=== PATIENT | female | born 1945 | race Caucasian/White ===

== ENCOUNTER 2017-06-12 19:11 | Emergency (ER) | payer MEDICARE, OTHER ==
[~2017-06-12] VITALS: Ht 170.2 cm; Wt 60.3 kg
[~2017-06-12 19:11] MED LIST: AZIT-1 PO; BENZ200C15 PO; CA C1TAB85 PO; CALC-852 PO; CALC1TAB32 PO; CITA-139 PO; CLOB15OI TP; EPIN0.3P15 IM; GLUC1TAB35 PO; LEVO50TA86 PO; LEVO75TA73 PO; LOVAZA1PT PO; MELA1TAB15 PO; MONT10TA4 PO; MULT1TAB54 PO; OMEG500C5 PO; PRIM50TA PO; SODI3.5O14 OP
--- NOTE | 2017-06-12 19:31 | ER Report ---
History and Physical Time Seen By MD: 19:30 Hx. of Stated Complaint: PT HAS HAD 7 BOUTS OF DIARRHEA TODAY AND 3 BOUT OF VOMITING. STARTED THIS MORNING AROUND 10 AM. HPI/ROS CHIEF COMPLAINT: Nausea, vomiting, diarrhea HISTORY OF PRESENT ILLNESS: 71-year-old female patient presents to emergency room with complaint of nausea, vomiting diarrhea. Patient states this started approximately 10:00 this morning. Patient states that she has had 7 bouts of diarrhea and 3 bouts of vomiting. She denies having any fevers, chills. Patient states that her started getting sick in the middle the night. She states that he's had several bouts of diarrhea. They did call and speak with the on-call physician for Dr. Ward. They recommended Gatorade for her but due to her vomiting the recommended the patient come in for further evaluation. Patient states she's not having any pain. She states she has not taken any medication for this. REVIEW OF SYSTEMS: Respiratory: No cough, no dyspnea. Cardiovascular: No chest pain, no palpitations. Gastrointestinal: As noted above Musculoskeletal: No back pain. Allergies: Coded Allergies: aspirin (Verified Allergy, Severe, anaphylaxis, 06/12/17) Home Meds Active Scripts Ondansetron (ZOFRAN ODT) 4 Mg Tab.rapdis, 4 MG PO Q6H Y for NAUSEA/VOMITING, # 20 TAB.VALERIE Prov:ASHUTOSH CHILDRESS 06/12/17 Levothyroxine Sodium (LEVOTHYROXINE SODIUM) 75 Mcg Tablet, 1 TAB PO QDAY, #90 TAB 3 Refills 1 tab po q d X 6 days per week, skip one day. Prov:ANUJA BISWAS MD 01/02/17 Epinephrine (EPIPEN 2-ALFONSO) 0.3 Mg/0.3 Ml Pen.injctr, 1 DOSE-PACK IM ONCE Y for ALLERGY SYMPTOMS, #1 PACK 1 Refill Prov:ANDREA SKAGGS APRN [employer] 04/07/14 Reported Medications Primidone (PRIMIDONE) 50 Mg Tab, 1 TAB PO BID, TAB 06/24/16 Calcium Carbonate/Vitamin D3 (CALCIUM + VITAMIN D TABLET) 1 Each Tablet, 1 TAB PO BID 06/20/15 [place]-3 Fatty Acids (FISH OIL) 500 Mg Capsule., 1 CAP PO QDAY 05/18/14 Glucosamine/Msm/Chondroitin A (GLUCOSAMINE CHONDROIT MSM TAB) 1 Each Tablet, 1 TAB PO BID 01/09/14 Sodium Chloride (SABRINA-128) Unknown Strength Oint...g., 1 DROP OP QPM 01/09/14 Clobetasol Propionate (TEMOVATE) Unknown Strength Oint...g., 1 TIFFANI TP BID 01/09/14 Multivitamin (MULTI-VITAMIN DAILY) 1 Each Tablet, 1 TAB PO DAILY 01/09/14 Discontinued Scripts Citalopram Hydrobromide (CITALOPRAM HBR) 20 Mg Tablet, 1 TAB PO QDAY, #90 TAB 1 Refill Prov:ANUJA BISWAS MD 09/11/16 Past Medical/Surgical History Patient has a past medical history of arthritis, fracture of her clavicle, hypothyroidism, depression. Patient has a surgical history of L5-S1 surgery for bulging disc, tonsillectomy. Reviewed Nurses Notes: Yes Smoking Status: Never Smoker Exposure to Second Hand Smoke?: No Constitutional Vital Sign - Last 24 Hours 06/12/17 06/12/17 06/12/17 06/12/17 19:24 19:27 19:41 20:11 Temp 98.3 Pulse 82 80 82 Resp 12 B/P (MAP) 125/70 (88) 125/70 Pulse Ox 91 86 91 O2 Delivery Room Air 06/12/17 06/12/17 20:41 21:07 Pulse 75 B/P (MAP) 112/68 (83) Pulse Ox 97 Intake and Output 06/12/17 06/12/17 06/13/17 15:01 23:01 07:01 Intake Total 1000 ml Balance 1000 ml Physical Exam General Appearance: The patient is alert, has no immediate need for airway protection and no current signs of toxicity. ENT: Mucous membranes are moist. Respiratory: Chest is non tender, lungs are clear to auscultation. Cardiac: regular rate and rhythm Gastrointestinal: Abdomen is soft and non tender, no masses, bowel sounds are hyperactive. Musculoskeletal: Neck: Neck is supple and non tender. Extremities have full range of motion and are non tender. Skin: No rashes or lesions. DIFFERENTIAL DIAGNOSIS: After history and physical exam differential diagnosis was considered for nausea and vomiting including but not limited to gastroenteritis, gastritis, appendicitis, and medication side effect. Medical Decision Making Data Points Result Diagram: 06/12/17194906/12/171949 Laboratory Hematology Test 06/12/17 19:17 06/12/17 19:50 Urine Color Yellow Urine Clarity Slightly-cloudy Urine pH 5.0 pH (4.8-9.5) Urine Specific [place] 1.026 Urine Protein Negative mg/dL (NEGATIVE) Urine Glucose (UA) Negative mg/dL (NEGATIVE) Urine Ketones 20 mg/dL (NEGATIVE) Urine Blood Negative (NEGATIVE) Urine Nitrite Negative (NEGATIVE) Urine Bilirubin Negative (NEGATIVE) Urine Urobilinogen Negative mg/dL (0.2-1.9) Urine Leukocyte Esterase Trace (NEGATIVE) Urine RBC 1 /HPF (0-2/HPF) Urine WBC 4 /HPF (0-5/HPF) Urine Squamous Epithelial Cells None /LPF (</=FEW) Urine Bacteria Negative /HPF (NONE-FEW) Urine Mucus Few /HPF (NONE-FEW) Red Blood Count 4.78 M/uL (4.17-5.56) Mean Corpuscular Volume 93.8 fL (80.0-96.0) Mean Corpuscular Hemoglobin 31.8 pg (26.0-33.0) Mean Corpuscular Hemoglobin Concent 33.9 g/dL (32.0-36.0) Red Cell Distribution Width 13.4 % (11.5-14.5) Mean Platelet Volume 7.8 fL (7.2-11.1) Neutrophils (%) (Auto) 91.9 % (39.4-72.5) Lymphocytes (%) (Auto) 2.7 % (17.6-49.6) Monocytes (%) (Auto) 3.3 % (4.1-12.4) Eosinophils (%) (Auto) 1.9 % (0.4-6.7) Basophils (%) (Auto) 0.2 % (0.3-1.4) Nucleated RBC Relative Count (auto) 0.1 /100WBC Neutrophils # (Auto) 6.2 K/uL (2.0-7.4) Lymphocytes # (Auto) 0.2 K/uL (1.3-3.6) Monocytes # (Auto) 0.2 K/uL (0.3-1.0) Eosinophils # (Auto) 0.1 K/uL (0.0-0.5) Basophils # (Auto) 0.0 K/uL (0.0-0.1) Nucleated RBC Absolute Count (auto) 0.01 K/uL Sodium Level 137 mmol/L (137-145) Potassium Level 4.0 mmol/L (3.5-5.0) Chloride Level 100 mmol/L (98-107) Carbon Dioxide Level 26 mmol/L (22-31) Blood Urea Nitrogen 18 mg/dl (7-18) Creatinine 0.80 mg/dl (0.52-1.04) Glomerular Filtration Rate Calc > 60.0 Random Glucose 121 mg/dl (75-110) Calcium Level 8.6 mg/dl (8.4-10.2) Total Bilirubin 0.7 mg/dl (0.2-1.3) Aspartate Amino Transf (AST/SGOT) 30 U/L (0-35) Alanine Aminotransferase (ALT/SGPT) 38 U/L (0-56) Alkaline Phosphatase 92 U/L (0-126) Total Protein 6.9 gm/dl (6.3-8.2) Albumin 4.0 g/dl (3.5-5.0) Chemistry Test 06/12/17 19:17 06/12/17 19:50 Urine Color Yellow Urine Clarity Slightly-cloudy Urine pH 5.0 pH (4.8-9.5) Urine Specific [place] 1.026 Urine Protein Negative mg/dL (NEGATIVE) Urine Glucose (UA) Negative mg/dL (NEGATIVE) Urine Ketones 20 mg/dL (NEGATIVE) Urine Blood Negative (NEGATIVE) Urine Nitrite Negative (NEGATIVE) Urine Bilirubin Negative (NEGATIVE) Urine Urobilinogen Negative mg/dL (0.2-1.9) Urine Leukocyte Esterase Trace (NEGATIVE) Urine RBC 1 /HPF (0-2/HPF) Urine WBC 4 /HPF (0-5/HPF) Urine Squamous Epithelial Cells None /LPF (</=FEW) Urine Bacteria Negative /HPF (NONE-FEW) Urine Mucus Few /HPF (NONE-FEW) White Blood Count 6.8 k/uL (4.5-11.0) Red Blood Count 4.78 M/uL (4.17-5.56) Hemoglobin 15.2 g/dL (12.0-16.0) Hematocrit 44.8 % (34.0-47.0) Mean Corpuscular Volume 93.8 fL (80.0-96.0) Mean Corpuscular Hemoglobin 31.8 pg (26.0-33.0) Mean Corpuscular Hemoglobin Concent 33.9 g/dL (32.0-36.0) Red Cell Distribution Width 13.4 % (11.5-14.5) Platelet Count 196 K/uL (150-450) Mean Platelet Volume 7.8 fL (7.2-11.1) Neutrophils (%) (Auto) 91.9 % (39.4-72.5) Lymphocytes (%) (Auto) 2.7 % (17.6-49.6) Monocytes (%) (Auto) 3.3 % (4.1-12.4) Eosinophils (%) (Auto) 1.9 % (0.4-6.7) Basophils (%) (Auto) 0.2 % (0.3-1.4) Nucleated RBC Relative Count (auto) 0.1 /100WBC Neutrophils # (Auto) 6.2 K/uL (2.0-7.4) Lymphocytes # (Auto) 0.2 K/uL (1.3-3.6) Monocytes # (Auto) 0.2 K/uL (0.3-1.0) Eosinophils # (Auto) 0.1 K/uL (0.0-0.5) Basophils # (Auto) 0.0 K/uL (0.0-0.1) Nucleated RBC Absolute Count (auto) 0.01 K/uL Glomerular Filtration Rate Calc > 60.0 Calcium Level 8.6 mg/dl (8.4-10.2) Total Bilirubin 0.7 mg/dl (0.2-1.3) Aspartate Amino Transf (AST/SGOT) 30 U/L (0-35) Alanine Aminotransferase (ALT/SGPT) 38 U/L (0-56) Alkaline Phosphatase 92 U/L (0-126) Total Protein 6.9 gm/dl (6.3-8.2) Albumin 4.0 g/dl (3.5-5.0) Urinalysis Test 06/12/17 19:17 Urine Color Yellow Urine Clarity Slightly-cloudy Urine pH 5.0 pH (4.8-9.5) Urine Specific [place] 1.026 Urine Protein Negative mg/dL (NEGATIVE) Urine Glucose (UA) Negative mg/dL (NEGATIVE) Urine Ketones 20 mg/dL (NEGATIVE) Urine Blood Negative (NEGATIVE) Urine Nitrite Negative (NEGATIVE) Urine Bilirubin Negative (NEGATIVE) Urine Urobilinogen Negative mg/dL (0.2-1.9) Urine Leukocyte Esterase Trace (NEGATIVE) Urine RBC 1 /HPF (0-2/HPF) Urine WBC 4 /HPF (0-5/HPF) Urine Squamous Epithelial Cells None /LPF (</=FEW) Urine Bacteria Negative /HPF (NONE-FEW) Urine Mucus Few /HPF (NONE-FEW) EKG/Imaging Imaging Abdominal series with single view of the chest: 06/12/2017 7:38 PM HISTORY: Nausea and vomiting diarrhea. COMPARISON:None. FINDINGS: Some stool seen within the colon. Bowel gas pattern is nonobstructed and nondilated. Abdominal soft tissues grossly normal without suspicious lucencies or abnormal calcifications. No acute bony abnormality. Lungs show no consolidation, pleural effusion or pneumothorax. Mild postinflammatory changes seen apices. No discrete nodule. Cardiomediastinal silhouette and pulmonary vessels within normal limits. No acute bony abnormality. IMPRESSION: 1. Unremarkable exam of the abdomen. 2. No acute cardiopulmonary process. Report Dictated By: Amadou Deng at 06/12/2017 8:14 PM Report E-Signed By: Amadou Deng at 06/12/2017 8:17 PM ED Course/Re-evaluation ED Course Patient was admitted to an exam room, history and physical were obtained. Differential diagnoses were considered. On exam patient had no abdominal tenderness, abdomen was soft with hyperactive bowel sounds. An IV was started, CBC, CMP, urinalysis, acute abdominal x-ray was done. Patient received 1 L of normal saline. On reexamination patient states she is feeling slightly better. She states she's not had any bouts of diarrhea or emesis and she's been here in the emergency room. I discussed findings with the lab work as well as the x- ray. We will go ahead and culture urine as she did have 4 white blood cells per high-power field. I would are likely looking at a viral syndrome as patient did have a left shift but no elevation in her white count. We'll go ahead and treat this symptomatically. She is return to emergency room if condition worsens. She is to be on a clear liquid diet for the next 24 hours. Patient will be given a prescription of Zofran as well as 2 to get through tonight. Patient verbalized understanding and agreement. Decision to Disposition Date: Jun 12, 2017 Decision to Disposition Time: 20:40 Depart Departure Latest Vital Signs Vital Signs Date Time Temp Pulse Resp B/P (MAP) Pulse Ox O2 Delivery O2 Flow Rate FiO2 06/12/17 21:07 112/68 (83) 06/12/17 20:41 75 97 06/12/17 19:27 98.3 12 Room Air Impression: Primary Impression: Gastroenteritis Condition: Improved Disposition: HOME OR SELF-CARE Referrals: ANUJA BISWAS MD (PCP) New Scripts Ondansetron (ZOFRAN ODT) 4 Mg Tab.rapdis 4 MG PO Q6H Y for NAUSEA/VOMITING, #20 TAB.VALERIE Prov: ASHUTOSH CHILDRESS 06/12/17 Patient Instructions: Clear Liquid Diet (ED), Gastroenteritis (ED) Additional Instructions: Increase fluid intake. Clear liquid diet for the next 24-48 hours. After that you may advance diet as tolerated starting with complex carbohydrates ; rice, bread or pasta. Follow up with your primary care provider in the next week. Return to the ER if condition worsens. You may take over the counter Pepto Bismol as needed for cramping, diarrhea and discomfort. ASHUTOSH CHILDRESS Jun 12, 2017 19:31
[2017-06-12] MEDS ORDERED: NS(*) 0.9% 1000 ML BAG 1,000 ML IV ONE (19:40)
[2017-06-12 20:01] LABS: PLATELET COUNT, AUTOMATED 196 K/uL (150-450)
--- NOTE | 2017-06-12 20:22 | RADIOLOGY IMAGING REPORT ---
FACILITY: [facility] - [place], [place] PATIENT NAME: Jacqueline Mendez : 1945 MR: [id number] V: [id number] EXAM DATE: ORDERING PHYSICIAN: ASHUTOSH CHILDRESS TECHNOLOGIST: Location: [facility] Patient: Jacqueline Mendez : 1945 Visit/Account:[id number] Date of Sevice: 06/12/2017 Abdominal series with single view of the chest: 06/12/2017 7:38 PM HISTORY: Nausea and vomiting diarrhea. COMPARISON:None. FINDINGS: Some stool seen within the colon. Bowel gas pattern is nonobstructed and nondilated. Abdom inal soft tissues grossly normal without suspicious lucencies or abnormal calcifications. No acute zack ny abnormality. Lungs show no consolidation, pleural effusion or pneumothorax. Mild postinflammatory changes seen ap ices. No discrete nodule. Cardiomediastinal silhouette and pulmonary vessels within normal limits. No acute bony abnormality. IMPRESSION: 1. Unremarkable exam of the abdomen. 2. No acute cardiopulmonary process. Report Dictated By: Amadou Deng at 06/12/2017 8:14 PM Report E-Signed By: Amadou Deng at 06/12/2017 8:17 PM WSN:[id number]
[2017-06-12] MEDS ORDERED: ONDA4TAB PO (20:41)
[2017-06-12 21:07] VITALS: BP 112/68
[2017-06-12] MEDS ORDERED: ONDANSETRON 4 MG ODT TH SL ONE (21:20)
== END 2017-06-12 21:19 | disposition home or self-care (01) ==
LOC: ER 19:23
DX: K52.9 Noninfective gastroenteritis and colitis, unspecified (principal)
CPT/HCPCS: 74022; 81001; 85025; 96360; 96361; 99284; J7030; Q0162; 82040; 82247; 82310; 82374; 82435; 82565; 82947; 84075; 84132; 84155; 84295; 84450; 84460; 84520; S0119

== ENCOUNTER → 2017-11-24 | Outpatient (CLI) | payer MEDICARE, OTHER ==
[~2017-11-24] MED LIST changes: +BENZ100C26 PO; -CITA-139 PO; +CITA-145 PO; +DOXY-179 PO; +ONDA4TAB PO
--- NOTE | 2017-11-24 11:55 | RADIOLOGY IMAGING REPORT ---
FACILITY: [facility] PATIENT NAME: Jacqueline Mendez : 1945 MR: [id number] V: [id number] EXAM DATE: ORDERING PHYSICIAN: ANUJA BISWAS TECHNOLOGIST: Location: [facility] - [place] Patient: Jacqueline Mendez : 1945 Visit/Account:[id number] Date of Sevice: 11/24/2017 Exam type: CHEST PA AND LAT History: cough, possible aspiration Comparison: June 12, 2017. Findings: The lungs are free of acute effusions, infiltrates or edema. Cardiac silhouette is normal in size. The trachea is in midline. There is a very gentle dextroconvex scoliosis of the thoracic spine IMPRESSION: 1. No acute cardiac pulmonary process is seen Report Dictated By: Lina Carter MD at 11/24/2017 11:45 AM Report E-Signed By: Lina Carter MD at 11/24/2017 11:49 AM WSN:[email or web address]
== END ==
LOC: RAD 10:04
PROVIDERS: ATTEND Internal Medicine
DX: R05 Cough (principal)
CPT/HCPCS: 71046

== ENCOUNTER → 2017-12-23 | Outpatient (CLI) | payer MEDICARE, OTHER ==
--- NOTE | 2017-12-24 13:47 | RADIOLOGY IMAGING REPORT ---
FACILITY: [facility] [place] PATIENT NAME: VICKI LASSITER : [id number] MR: [id number] V: [id number] EXAM DATE: [id number] ORDERING PHYSICIAN: ANUJA BISWAS TECHNOLOGIST: Maria T Guo PROCEDURE:BILATERAL DIGITAL SCREENING MAMMOGRAM WITH CAD ASSISTED INTERPRETATION & 3D TOMOSYNTHESIS COMPARISON:Prior mammograms 12/22/16, 12/20/15, 12/18/14. INDICATIONS:SCREENING FINDINGS: The breasts have heterogeneous parenchymal density. There are no mammographic findings concerning for malignancy. No significant change from priors. DIAGNOSTIC CATEGORY 1--NEGATIVE. RECOMMENDATIONS: ROUTINE MAMMOGRAM AND CLINICAL EVALUATION IN 1 YEAR. IMPRESSION: BIRADS 1: Negative. Dictated by: Corey Watt on 12/24/2017 at 9:21 Transcribed by: RALPH on 12/24/2017 at 10:51 Approved by: Corey Watt on 12/24/2017 at 13:45 [facility]
== END ==
LOC: MAMO 01:08
PROVIDERS: ATTEND Internal Medicine
DX: Z12.31 Encounter for screening mammogram for malignant neoplasm of breast (principal)
CPT/HCPCS: 77063; 77067

== ENCOUNTER 2018-11-23 09:12 | Emergency (ER) | payer MEDICARE, OTHER ==
[~2018-11-23 09:12] MED LIST changes: +BIOT250012 PO; +CALC600T63 PO; +FLUT16SP19 NS; +TRIA80OI13 TP; +[UNRECOGNIZED DRUG - CODE] PO
--- NOTE | 2018-11-23 09:17 | ER Report ---
History and Physical Time Seen By MD: 09:15 HPI/ROS CHIEF COMPLAINT: Cough, sore throat HISTORY OF PRESENT ILLNESS: Patient is a 73-year-old female here with complaints of cough productive of yellow sputum, nasal drainage, sore throat which seems to be improving with raspy voice. Patient reports that she had traveled to [facility] recently and has had a cough ever since for approximately one week. Patient denies fevers, shortness of breath. She denies a history of significant smoking or known pulmonary disease. Patient is afebrile, hemodynamically stable at time of evaluation. REVIEW OF SYSTEMS: Constitutional: No fever, no chills. Eyes: No discharge. ENT: + sore throat, + sinus pressure Cardiovascular: No chest pain, no palpitations. Respiratory: + cough, no shortness of breath. Gastrointestinal: No abdominal pain, no vomiting. Genitourinary: No hematuria. Musculoskeletal: No back pain. Skin: No rashes. Neurological: No headache. Allergies: Coded Allergies: aspirin (Verified Allergy, Severe, anaphylaxis, 11/23/18) Home Meds Active Scripts Triamcinolone Acetonide 0.025% (TRIAMCINOLONE ACETONIDE 0.025%) 80 Gm Oint...g., 80 GM TP BID for 14 Days, #1 TUB Prov:GIOVANNA WORRELL MD 03/18/18 Fluticasone Prop 50 Mcg Ns (FLONASE 50 MCG NS) 16 Gm [place].susp, 2 SPRAYS NS QDAY for 30 Days, #1 BOT 4 Refills Prov:GIOVANNA WORRELL MD 03/18/18 Levothyroxine Sodium (LEVOTHYROXINE SODIUM) 75 Mcg Tablet, 1 TAB PO DIRECTED, #90 TAB 4 Refills 1 tab po q d X 6 days per week, skip one day. Prov:GIOVANNA WORRELL MD 12/24/17 Epinephrine (EPIPEN 2-ALFONSO) 0.3 Mg/0.3 Ml Pen.injctr, 1 DOSE-PACK IM ONCE PRN for ALLERGY SYMPTOMS, #1 PACK 1 Refill Prov:ANDREA SKAGGS APRN [employer] 04/07/14 Reported Medications Biotin (BIOTIN) 2,500 Mcg Capsule, 5000 CAP PO DAILY, CAPSULE 03/18/18 Cod Liver Oil (COD LIVER OIL) 473 Ml Oil, 1 TSP PO DAILY Cod liver oil+ 1060 omega 3 + 1000 Vitamin D 03/18/18 Calcium Carbonate (CALCIUM) 600 Mg Tablet, 1 TAB PO DAILY 03/18/18 Melatonin/Pyridoxine (MELATONIN 5 MG TABLET) 1 Each Tablet, 1 EACH PO HS 12/24/17 Primidone (PRIMIDONE) 50 Mg Tab, 1 TAB PO BID, TAB 06/24/16 Glucosamine/Msm/Chondroitin A (GLUCOSAMINE CHONDROIT MSM TAB) 1 Each Tablet, 1 TAB PO BID 01/09/14 Sodium Chloride (SABRINA-128) Unknown Strength Oint...g., 1 DROP OP PRN 5% ointment at night 5% eye drop during day time. 01/09/14 Multivitamin (MULTI-VITAMIN DAILY) 1 Each Tablet, 1 TAB PO DAILY 01/09/14 Smoking Status: Never Smoker Exposure to Second Hand Smoke?: No Hx Substance Use Disorder: No Hx Alcohol Use: No Constitutional Vital Sign - Last 24 Hours 11/23/18 09:15 Temp 97.5 Pulse 66 Resp 16 B/P (MAP) 127/69 Pulse Ox 91 O2 Delivery Room Air Physical Exam General Appearance: The patient is alert, has no immediate need for airway protection and no signs of toxicity. No acute distress Eyes: Pupils equal and round no pallor or injection. ENT, Mouth: Mucous membranes are moist + mild erythematous posterior oropharynx without exudates, hoarse voice Respiratory: There are no retractions, + scattered rhonchi bilateral lung robin Cardiovascular: Regular rate and rhythm. [ ] Gastrointestinal: Abdomen is soft and non tender, no masses, bowel sounds normal. Neurological: No focal neurological deficits Skin: Warm and dry, no rashes. Musculoskeletal: Neck is supple non tender. Extremities are nontender, nonswollen and have full range of motion. DIFFERENTIAL DIAGNOSIS: After history and physical exam differential diagnosis was considered for shortness of breath including but not limited to pulmonary infectious process, COPD, asthma, pulmonary embolus and congestive heart failure. Medical Decision Making EKG/Imaging Imaging PATIENT NAME: Jacqueline Mendez : 1945 MR: [id number] V: [id number] EXAM DATE: ORDERING PHYSICIAN: JOSEPH PHELAN TECHNOLOGIST: Location: [facility] - [place] Patient: Jacqueline Mendez : 1945 Visit/Account:[id number] Date of Sevice: 11/23/2018 CHEST PA LAT HISTORY: Cough. COMPARISON: 11/24/2017 FINDINGS: Frontal and lateral views chest obtained. Lines/tubes: Oxygen tubing extends towards the head. Lungs/pleura: Normally inflated and grossly clear. No evidence of effusion or pneumothorax. Cardiomediastinum and ibeth: Mild atherosclerotic calcifications aortic arch. Bones/soft tissues: Unremarkable. Additional findings: None. IMPRESSION: No evidence of an acute intrathoracic process or other significant interval change. ED Course/Re-evaluation ED Course Patient is a 73-year-old female here with complaints of productive cough, sinus pressure, nasal drainage, sore throat with hoarse voice. Patient was hemodynamically stable, afebrile at time of evaluation. Chest x-ray showed no acute findings. Due to the patient's current symptoms, she'll be treated with doxycycline 7 d course to cover for suspected sinus infection, atypical pulmonary infection. Patient was also given scripts for prednisone 3 day burst therapy. Patient was stable at time of discharge. Return precautions were provided. Close PCP follow-up recommended. Decision to Disposition Date: Nov 23, 2018 Decision to Disposition Time: 10:57 Depart Departure Latest Vital Signs Vital Signs Date Time Temp Pulse Resp B/P (MAP) Pulse Ox O2 Delivery O2 Flow Rate FiO2 11/23/18 09:15 97.5 66 16 127/69 91 Room Air Impression: Primary Impression: Acute bronchitis Condition: Improved Disposition: HOME OR SELF-CARE Referrals: GIOVANNA WORRELL MD (PCP) New Scripts Doxycycline Hyclate (DOXYCYCLINE HYCLATE) 100 Mg Tablet 100 MG PO BID for 7 Days, #14 TAB Prov: JOSEPH PHELAN DO 11/23/18 Prednisone (PREDNISONE) 50 Mg Tablet 50 MG PO QDAY for 3 Days, #3 TAB Prov: JOSEPH PHELAN DO 11/23/18 Patient Instructions: Acute Bronchitis (GEN) Additional Instructions: Please drink plenty of water. Please take doxycycline 1 tablet twice daily for 7 days for treatment of suspected pulmonary infection, sinus infection. Please take prednisone 50 mg once daily for 3 days for treatment of inflammation. Please return promptly if you develop fevers, worsening cough, shortness breath, chest pains, blurry vision, headaches. Please follow-up with your family doctor in the next 3-5 days. JOSEPH PHELAN DO Nov 23, 2018 09:17
[2018-11-23 10:30] VITALS: BP 105/68
--- NOTE | 2018-11-23 10:42 | RADIOLOGY IMAGING REPORT ---
FACILITY: [facility] - [place] PATIENT NAME: Jacqueline Mendez : 1945 MR: [id number] V: [id number] EXAM DATE: ORDERING PHYSICIAN: JOSEPH PHELAN TECHNOLOGIST: Location: [facility] - [place] Patient: Jacqueline Mendez : 1945 Visit/Account:[id number] Date of Sevice: 11/23/2018 CHEST PA LAT HISTORY: Cough. COMPARISON: 11/24/2017 FINDINGS: Frontal and lateral views chest obtained. Lines/tubes: Oxygen tubing extends towards the head. Lungs/pleura: Normally inflated and grossly clear. No evidence of effusion or pneumothorax. Cardiomediastinum and ibeth: Mild atherosclerotic calcifications aortic arch. Bones/soft tissues: Unremarkable. Additional findings: None. IMPRESSION: No evidence of an acute intrathoracic process or other significant interval change. Report Dictated By: Manny Live MD at 11/23/2018 10:29 AM Report E-Signed By: Manny Live MD at 11/23/2018 10:31 AM WSN:[id number]
[2018-11-23] MEDS ORDERED: DOXY-179 PO (11:00)
[2018-11-23] MEDS ORDERED: PRED50TA22 PO (11:00)
== END 2018-11-23 11:10 | disposition home or self-care (01) ==
LOC: ER 09:38
DX: J20.9 Acute bronchitis, unspecified (principal)
CPT/HCPCS: 71046; 99283

== ENCOUNTER → 2019-01-20 | Outpatient (CLI) | payer MEDICARE, OTHER ==
[~2019-01-20] MED LIST changes: +CEFP250T27 PO; +FLUO20DR3 OT; +PRED50TA22 PO
--- NOTE | 2019-01-21 14:01 | RADIOLOGY IMAGING REPORT ---
FACILITY: [facility] - [place] PATIENT NAME: VICKI LASSITER : [id number] MR: [id number] V: [id number] EXAM DATE: [id number] ORDERING PHYSICIAN: GIOVANNA WORRELL TECHNOLOGIST: Florina Rubio PROCEDURE: BILATERAL DIGITAL SCREENING MAMMOGRAM WITH CAD ASSISTED INTERPRETATION & 3D TOMOSYNTHESIS REASON FOR STUDY: Screening. FAMILY HISTORY OF BREAST CANCER: Maternal grandmother, sister at age 67, grand maternal aunt, maternal cousin and daughter. BREAST PROCEDURES/TREATMENTS: Benign surgical biopsy of the Left breast. COMPARISON: 12/23/17, 12/22/16, 12/20/15, 12/18/14, 12/16/13, 12/14/12. VIEWS OBTAINED: Bilateral 2D & 3D full field CC 7 MLO projections. BREAST DENSITY: The breasts are heterogeneously dense which can obscure small masses. MAMMOGRAM FINDINGS: The parenchymal pattern has remained stable allowing for difference in mammographic technique & patient positioning. IMPRESSION: BIRADS 1: Negative. DIAGNOSTIC CATEGORY 1--NEGATIVE. RECOMMENDATIONS: ROUTINE MAMMOGRAM AND CLINICAL EVALUATION. Dictated by: Lina Carter M.D. on 01/20/2019 at 16:23 Transcribed by: RALPH on 01/21/2019 at 13:50 Approved by: Lnia Carter M.D. on 01/21/2019 at 13:55 [facility]
== END ==
LOC: MAMO 02:10
PROVIDERS: ATTEND Family Medicine
DX: Z12.31 Encounter for screening mammogram for malignant neoplasm of breast (principal)
CPT/HCPCS: 77063; 77067